=== PATIENT | male | born 1970 | race Caucasian/White ===

== ENCOUNTER 2016-10-08 00:36 | Observation (INO) | payer BC ==
[~2016-10-08] VITALS: Ht 175.3 cm; Wt 97.7 kg
[2016-10-08] VITALS (7 sets, daily range): BP systolic 105–134; BP diastolic 50–82; PULSE 55–80; TEMP 97.6–98.6
[2016-10-08 01:34] LABS: BASO # 0.1 (0.0-0.2); BASO % 0.6 % (0.0-2.0); EOS # 0.3 (0.0-0.7); EOS % 2.9 % (0-4.0); GRAN # 5.6 (1.4-6.5); GRAN % 54.3 % (42.2-75.2); HEMATOCRIT 46.1 % (42.0-52.0); HEMOGLOBIN 15.7 g/dl (13.5-18.0); LYMPH # 3.5 (1.2-3.4); LYMPH % 34.3 % (20.0-51.0); MEAN CELL VOLUME 85 fl (80.0-100.0); MEAN CORPUSCULAR HEMOGLOBIN 29 pg (27.0-31.0); MEAN CORPUSCULAR HGB CONC 34 g/dl (33.0-37.0); MEAN PLATELET VOLUME 9.1 fl (7.4-10.4); MONO # 0.8 (0.1-0.6); MONO % 7.5 % (1.7-9.3); PLATELET COUNT 249 K/mm3 (130-400); REDCELL DISTRIBUTION WIDTH-CV 12.1 % (11.5-14.5); WHITE BLOOD COUNT 10.2 K/mm3 (4.8-10.8)
[2016-10-08 01:42] LABS: CALCIUM 9.7 mg/dL (8.4-10.2); CREATININE, serum 1.12 mg/dL (0.66-1.25); PH 6 (5-8); POTASSIUM 4.2 mmol/L (3.4-5.0); SQUAMOUS EPITHELIAL 0-2 /hpf; URINE APPEARANCE Clear; URINE BACTERIA None Seen /hpf; URINE BILIRUBIN Negative (NEGATIVE); URINE BLOOD Negative (NEGATIVE); URINE COLOR Yellow; URINE GLUCOSE Negative (NEGATIVE); URINE KETONE Negative (NEGATIVE); URINE RBC 0-2 /hpf; URINE UROBILINOGEN Negative (NEGATIVE); URINE WBC 0-2 /hpf
[2016-10-08] MEDS ORDERED: PERCOCET 325 MG1 TA2 PO (02:49)
[2016-10-08] MEDS ORDERED: ULTRAM 50MG TAB50 MG PO (02:49)
== END 2016-10-08 16:30 | disposition home or self-care (01) ==
LOC: COL.ER 00:36 → SURG 03:01
PROVIDERS: Emergency Medicine
DX: K35.80 Unspecified acute appendicitis (principal)
CPT/HCPCS: G0378; J0690; J0694; J1100; J1170; J1885; J2405; J2704; J2710; J3010; J7120; Q9967

== ENCOUNTER 2017-03-12 19:13 | Emergency (ER) | payer BC ==
[~2017-03-12] VITALS: Ht 175.3 cm; Wt 104.5 kg
[~2017-03-12 19:13] MED LIST: PERCOCET 325 MG1 TA2 PO; ULTRAM 50MG TAB50 MG PO
[2017-03-12 19:16] VITALS: TEMP 98.2
[2017-03-12] MEDS ORDERED: PERCOCET 325 MG1 TA3 PO (21:10)
[2017-03-12 21:37] VITALS: BP 117/72; PULSE 65
== END 2017-03-12 21:39 | disposition home or self-care (01) ==
LOC: COL.ER 19:13
DX: S89.92XA Unspecified injury of left lower leg, initial encounter (principal); S80.01XA Contusion of right knee, initial encounter; S20.411A Abrasion of right back wall of thorax, initial encounter; R20.2 Paresthesia of skin; W22.8XXA Striking against or struck by other objects, initial encounter; Y92.79 Other farm location as the place of occurrence of the external cause; Z23 Encounter for immunization
CPT/HCPCS: J1170; J2060; J2405; J3010; J7030; L1830